=== PATIENT | female | born 1960 | race Caucasian/White ===

== ENCOUNTER 2017-01-02 10:07 | Emergency (ER) | payer OTHER ==
[~2017-01-02] VITALS: Ht 154.9 cm; Wt 92.2 kg
[2017-01-02 14:48] VITALS: BP 137/88
== END 2017-01-02 14:49 | disposition home or self-care (01) ==
LOC: ED 10:07
DX: M54.5 Low back pain (principal); M62.838 Other muscle spasm; R03.0 Elevated blood-pressure reading, without diagnosis of hypertension
CPT/HCPCS: 20552; J2001